=== PATIENT | male | born 1995 | race Caucasian/White ===

== ENCOUNTER 2018-08-22 02:57 | Inpatient (IN) | payer OTHER ==
[2018-08-22] MEDS ORDERED: Sodium Chloride 0.9% 1,000 ML ONE (03:17)
[2018-08-22] MEDS ORDERED: Sodium Chloride 0.9% 1,000 ML IV ONE (03:30)
[2018-08-22 03:39] LABS: BASO # 0.1 K/uL (0.0-0.2); BASO % 0.6 % (0.0-2.0); EOS # 0.1 K/uL (0.0-0.7); EOS % 0.6 % (0.0-4.0); HEMOGLOBIN 14.4 g/dL (12.0-18.0); LYMPH # 1.7 K/uL (1.0-4.3); LYMPH % 8.4 % (20.0-40.0); MEAN CELL VOLUME 85.4 fL (80.0-94.0); MEAN CORPUSCULAR HEMOGLOBIN 28.6 pg (27.0-31.0); MEAN CORPUSCULAR HGB CONC 33.5 g/dL (33.0-37.0); MEAN PLATELET VOLUME 8.6 fL (7.2-11.7); MONO # 0.8 K/uL (0.0-0.8); NEUT # 17.8 K/uL (1.8-7.0); NEUT % 86.4 % (50.0-75.0); PLATELET COUNT 327 K/uL (130-400); RBC 5.02 Mil/uL (4.40-5.90); RED CELL DISTRIBUTION WIDTH 12.8 % (11.5-14.5); WHITE BLOOD COUNT 20.6 K/uL (4.8-10.8)
[2018-08-22 03:51] LABS: BLOOD UREA NITROGEN 9 mg/dL (9-20); CALCIUM 9.6 mg/dl (8.6-10.4); GFR NON-AFRICAN AMERICAN > 60
[2018-08-22 03:59] LABS: BANDS 3 % (0-2); LYMPHOCYTE 6 % (20-40); MONOCYTE 1 % (0-10); NEUTROPHIL 86 % (50-75); PLATELET ESTIMATE NORMAL (NORMAL); REACTIVE LYMPHOCYTES 4 % (0-0); TOTAL CELLS COUNTED 100
[2018-08-22] MEDS ORDERED: Iodixanol 320 MG/ML 100 ML BOTTLE IV ONE (04:10)
--- NOTE | 2018-08-22 04:36 | C.PDOC ---
History Of Present Illness 23 year old male presents to the ED for evaluation of abdominal pain, nausea and vomiting which began at around 1800 today. Patient states that he has had around four episodes of vomiting within the past hour. Patient reports experiencing similar symptoms in the past. He states that sometimes he eats foods which exacerbate his stomach acid problem and cause him to have similar pain and vomiting. Patient denies fever, chills, diarrhea. Time Seen by Provider: 08/22/18 03:09 Chief Complaint (Nursing): Abdominal Pain History Per: Patient History/Exam Limitations: no limitations Onset/Duration Of Symptoms: Hrs Current Symptoms Are (Timing): Still Present Location Of Pain/Discomfort: Diffuse Quality Of Discomfort: "Pain" Associated Symptoms: Nausea, Vomiting. denies: Fever, Chills, Diarrhea Additional History Per: Patient Past Medical History Reviewed: Historical Data, Nursing Documentation, Vital Signs Vital Signs: Last Vital Signs Temp 98.7 F 08/22/18 03:00 Pulse 70 08/22/18 03:00 Resp BP 125/80 08/22/18 03:00 Pulse Ox 96 08/22/18 03:00 - Medical History PMH: No Chronic Diseases Surgical History: No Surg Hx Family History: States: Unknown Family Hx - Social History Hx Alcohol Use: No Hx Substance Use: No Review Of Systems Constitutional: Negative for: Fever, Chills Gastrointestinal: Positive for: Nausea, Vomiting, Abdominal Pain. Negative for: Diarrhea Physical Exam - Physical Exam Appears: Non-toxic, Other (in distress, actively vomiting during examinaton ) Skin: Normal Color, Warm, Dry Head: Atraumatic, Normacephalic Eye(s): bilateral: Normal Inspection Oral Mucosa: Moist Neck: Supple Chest: Symmetrical, No Deformity, No Tenderness Cardiovascular: Rhythm Regular, No Murmur Respiratory: Normal Breath Sounds, No Rhonchi, No Wheezing Gastrointestinal/Abdominal: Soft, Tenderness (mild, diffuse ), No Guarding, No Rebound Extremity: Normal ROM, Capillary Refill (less than 2 seconds ) Neurological/Psych: Oriented x3, Normal Speech, Normal Cognition ED Course And Treatment - Laboratory Results Result Diagrams: 08/22/18 03:30 08/22/18 03:30 O2 Sat by Pulse Oximetry: 96 (on RA ) Pulse Ox Interpretation: Normal - CT Scan/US CT A/P Other Rad Studies (CT/US): Read By Radiologist, Radiology Report Reviewed CT/US Interpretation: CT SCAN OF THE ABDOMEN AND PELVIS WITH CONTRAST. CLINICAL HISTORY: Generalized abdominal pain. TECHNIQUE: Multiple axial and coronal CT images were obtained through the abdomen and pelvis after administration of intravenous contrast material. COMMENTS: Diffusely thickened, enlarged appendix measuring 1.3 cm in its largest transverse dimension. Abnormal diffuse enhancement of the appendix. Mild surrounding inflammatory fat stranding. Uncomplicated colonic diverticulosis. The liver is of uniform attenuation without mass or defect. There is no intra or extrahepatic biliary ductal dilatation. The spleen is normal. The gallbladder is within normal limits. The pancreas is of normal contour and attenuation characteristics. There is no evidence of adrenal mass. Both kidneys demonstrate prompt and equal nephrograms. The kidneys are normal in size, shape and configuration. There is no evidence of renal or ureteral mass. No renal or ureteral calculi are identified. There is no hydroureter or hydronephrosis. There is no bowel wall thickening. No evidence for small or large bowel obstruction. There is no evidence of abdominal ascites or lymphadenopathy. There is no evidence of intrinsic or extrinsic bladder mass. There is no pelvic ascites or lymphadenopathy. Images of the lung bases show no evidence of pleural or parenchymal mass. There are no pleural effusions. The bony structures are free of lytic or blastic lesions. IMPRESSION: Uncomplicated acute appendicitis without perforation or abscess formation. Surgical consultation is recommended. Medical Decision Making Medical Decision Making: Impression: 23 year old male with abdominal pain, nausea, vomiting Progress: Bloodwork and CT A/P ordered and reviewed. Pepcid IVP, Toradol IVP, Zofran IVP and IV Fluids given. 0522- Case discussed with surgical consultant. 4.5g zosyn ivpb ordered. Case discussed with Dr. Brooks, would like admission to Dr. Radha Moore and he will consult for surgery. Dr. Radha Moore contacted for admission. Disposition - Disposition Disposition: HOSPITALIZED Disposition Time: 06:00 Condition: STABLE Forms: [facility] ([place]orran) - Clinical Impression Clinical Impression: Acute appendicitis - Scribe Statement The provider has reviewed the documentation as recorded by the Scribe (Mira Moore) Provider Attestation: All medical record entries made by the Scribe were at my direction and personally dictated by me. I have reviewed the chart and agree that the record accurately reflects my personal performance of the history, physical exam, medical decision making, and the department course for this patient. I have also personally directed, reviewed, and agree with the discharge instructions and disposition.
[2018-08-22] MEDS: Piperacill/Tazo 4.5gm in Dex 4.5 GM/100 ML BAG IVPB SCH ×3 (05:40→17:30)
--- NOTE | 2018-08-22 09:13 | CP.PCM.CON ---
<ThorntonOrlando solis - Last Filed: 08/22/18 09:09> History of Present Illness - History of Present Illness History of Present Illness: General Surgery Consult Re: Acute Appendicitis HPI: 23M presented to the ED with abdominal pain, associated with nausea and NBNB emesis x 6 which began around 6pm yesterday. Started around his umbilicus and spread to RLQ. On arrival in the ED, he had had 4 episodes of emesis within the past hour. Denies fever, chills, diarrhea hematochezia, melena, constipation , SOB, chest pain. PMH: Denies PSH: Denies SH: No tobacco, EtOH, or drug use FH: Noncontributory All: NKDA Meds: Denies Review of Systems - Review of Systems All systems: reviewed and no additional remarkable complaints except (as per HPI) Past Patient History - Past Medical History & Family History Past Medical History?: Yes - Past Social History Smoking Status: Never Smoked - CARDIAC Hx Cardiac Disorders: No - PULMONARY Hx Respiratory Disorders: No - NEUROLOGICAL Hx Neurological Disorder: No - HEENT Hx HEENT Problems: No - RENAL Hx Chronic Kidney Disease: No - ENDOCRINE/METABOLIC Hx Endocrine Disorders: No - HEMATOLOGICAL/ONCOLOGICAL Hx Blood Disorders: No - INTEGUMENTARY Hx Dermatological Problems: No - MUSCULOSKELETAL/RHEUMATOLOGICAL Hx Musculoskeletal Disorders: No Hx Falls: No - GASTROINTESTINAL Hx Gastrointestinal Disorders: Yes Hx Gastroesophageal Reflux: Yes - GENITOURINARY/GYNECOLOGICAL Hx Genitourinary Disorders: No - PSYCHIATRIC Hx Psychophysiologic Disorder: No Hx Substance Use: No - SURGICAL HISTORY Hx Surgeries: No - ANESTHESIA Hx Anesthesia: No Hx Anesthesia Reactions: No Hx Malignant Hyperthermia: No Has any member of the family had a problem w/ anesthesia?: No Meds Allergies/Adverse Reactions: Allergies Allergy/AdvReac Type Severity Reaction Status Date / Time No Known Allergies Allergy Verified 08/22/18 03:02 - Medications Medications: Current Medications Piperacillin Sod/Tazobactam Sod (Zosyn 4.5 Gm Iv Premix) 4.5 gm in 100 mls @ 200 mls/hr IVPB Q6H [facility]; Protocol Last Admin: 08/22/18 05:40 Dose: 200 mls/hr Influenza Virus Vaccine (Fluzone Quad [id number]) 60 mcg IM .ONCE ONE Stop: 08/25/18 10:01 Pneumococcal Polyvalent Vaccine (Pneumovax 23 Vaccine) 0.5 ml IM .ONCE ONE Stop: 08/25/18 10:01 Physical Exam - Constitutional Appears: Non-toxic, No Acute Distress - Head Exam Head Exam: ATRAUMATIC, NORMOCEPHALIC - Eye Exam Eye Exam: EOMI. absent: Scleral icterus - ENT Exam ENT Exam: Mucous Membranes Moist Additional comments: trachea midline - Respiratory Exam Respiratory Exam: NORMAL BREATHING PATTERN. absent: Respiratory Distress - Cardiovascular Exam Cardiovascular Exam: RRR, +S1, +S2 - GI/Abdominal Exam GI & Abdominal Exam: Guarding, Soft, Tenderness (in RLQ). absent: Distended, Firm, Rebound, Rigid - Rectal Exam Rectal Exam: Deferred - Extremities Exam Extremities exam: Positive for: normal capillary refill. Negative for: calf tenderness, pedal edema - Back Exam Back exam: absent: CVA tenderness (L), CVA tenderness (R) - Neurological Exam Neurological exam: Alert, Oriented x3 - Skin Skin Exam: Dry, Warm Results - Vital Signs Recent Vital Signs: Last Vital Signs Temp 98.5 F 08/22/18 08:23 Pulse 60 08/22/18 08:23 Resp 20 08/22/18 08:23 BP 110/65 08/22/18 08:23 Pulse Ox 98 08/22/18 08:23 - Labs Result Diagrams: 08/22/18 03:30 08/22/18 03:30 Labs: Laboratory Results - last 24 hr 08/22/18 08/22/18 03:30 03:30 WBC 20.6 H RBC 5.02 Hgb 14.4 Hct 42.9 MCV 85.4 MCH 28.6 MCHC 33.5 RDW 12.8 Plt Count 327 MPV 8.6 Neut % (Auto) 86.4 H Lymph % (Auto) 8.4 L [place] % (Auto) 4.0 Eos % (Auto) 0.6 Baso % (Auto) 0.6 Neut # (Auto) 17.8 H Lymph # (Auto) 1.7 [place] # (Auto) 0.8 Eos # (Auto) 0.1 Baso # (Auto) 0.1 Neutrophils % (Manual) 86 H Band Neutrophils % 3 H Lymphocytes % (Manual) 6 L Reactive Lymphs % 4 H Monocytes % (Manual) 1 Platelet Estimate Normal Sodium 137 Potassium 4.0 Chloride 102 Carbon Dioxide 24 Anion Gap 15 BUN 9 Creatinine 0.7 L Est GFR ( Amer) > 60 Est GFR (Non-Af Amer) > 60 Random Glucose 126 H Calcium 9.6 - Imaging and Cardiology CT scan - abdomen Status: Image reviewed by me, Report reviewed by me Assessment & Plan - Assessment and Plan (Free Text) Assessment: 23M with uncomplicated acute appendicitis Plan: NPO IVF Abx Pain control Planning for OR today D/W Dr. Cecilia Thornton PGY4 <Alan Brooks - Last Filed: 08/22/18 21:53> Meds - Medications Medications: Current Medications Piperacillin Sod/Tazobactam Sod (Zosyn 4.5 Gm Iv Premix) 4.5 gm in 100 mls @ 200 mls/hr IVPB Q6H [facility]; Protocol Last Admin: 08/22/18 17:30 Dose: 200 mls/hr Lactated Ringer's (Lactated Ringer's) 1,000 mls @ 100 mls/hr IV .Q10H [facility] Last Admin: 08/22/18 13:27 Dose: 200 mls Influenza Virus Vaccine (Fluzone Quad [id number]) 60 mcg IM .ONCE ONE Stop: 08/25/18 10:01 Pneumococcal Polyvalent Vaccine (Pneumovax 23 Vaccine) 0.5 ml IM .ONCE ONE Stop: 08/25/18 10:01 Tramadol HCl (Ultram) 25 mg PO TID PRN PRN Reason: Pain, moderate (4-7) Results - Vital Signs Recent Vital Signs: Last Vital Signs Temp 98.1 F 08/22/18 16:00 Pulse 69 08/22/18 16:00 Resp 20 08/22/18 16:00 BP 120/67 08/22/18 16:00 Pulse Ox 98 08/22/18 16:00 - Labs Result Diagrams: 08/22/18 03:30 08/22/18 03:30 Labs: Laboratory Results - last 24 hr 08/22/18 08/22/18 03:30 03:30 WBC 20.6 H RBC 5.02 Hgb 14.4 Hct 42.9 MCV 85.4 MCH 28.6 MCHC 33.5 RDW 12.8 Plt Count 327 MPV 8.6 Neut % (Auto) 86.4 H Lymph % (Auto) 8.4 L [place] % (Auto) 4.0 Eos % (Auto) 0.6 Baso % (Auto) 0.6 Neut # (Auto) 17.8 H Lymph # (Auto) 1.7 [place] # (Auto) 0.8 Eos # (Auto) 0.1 Baso # (Auto) 0.1 Neutrophils % (Manual) 86 H Band Neutrophils % 3 H Lymphocytes % (Manual) 6 L Reactive Lymphs % 4 H Monocytes % (Manual) 1 Platelet Estimate Normal Sodium 137 Potassium 4.0 Chloride 102 Carbon Dioxide 24 Anion Gap 15 BUN 9 Creatinine 0.7 L Est GFR ( Amer) > 60 Est GFR (Non-Af Amer) > 60 Random Glucose 126 H Calcium 9.6 Attending/Attestation - Attestation I have personally seen and examined this patient.: Yes I have fully participated in the care of the patient.: Yes I have reviewed all pertinent clinical information: Yes Notes (Text): Pt was seen and examined at bedside Agree with above note and assessment Pt with RLQ pain and Nausea Abdomen: Soft, RLQ tenderness, ND Labs and Radiology reviewed Ass: Acute Appendicitis with Leucocytosis Plan: OR for Lap Appendectomy possible Open Consent IV antibiotics NPO, IVF c/w current mx Plan d.w pt in detail Risk and benefit explained in detail
[2018-08-22] MEDS ORDERED: Midazolam 2 MG/2 ML VIAL ONE (11:07)
[2018-08-22] MEDS ORDERED: Propofol 10 mg/ml Inj (20 ML) ONE ×2 (11:07→12:05)
[2018-08-22] MEDS ORDERED: Lidocaine/Epinephrine 1% 1:100000 10 ML IJ ONE (11:51)
[2018-08-22] MEDS ORDERED: Bupivacaine 0.25% 20 ML INJ IJ ONE (11:51)
[2018-08-22] MEDS ORDERED: Succinylcholine Chloride 20 mg/ml Syr (5 ml) IV ONE (11:52)
[2018-08-22] MEDS ORDERED: Rocuronium 10 mg/ml (5 ml) ONE (11:52)
--- NOTE | 2018-08-22 12:40 | CT ---
Date of service: 08/22/2018 PROCEDURE: CT Abdomen and Pelvis with contrast HISTORY: abdominal pain COMPARISON: None. TECHNIQUE: Contrast dose: 100 mL of Visipaque 320 intravenously. Axial and reformatted coronal and sagittal CT images of the abdomen and pelvis were obtained after IV contrast administration. Radiation dose: Total exam DLP = 603.88 mGy-cm. This CT exam was performed using one or more of the following dose reduction techniques: Automated exposure control, adjustment of the mA and/or kV according to patient size, and/or use of iterative reconstruction technique. FINDINGS: LOWER THORAX: Unremarkable. LIVER: Unremarkable. No gross lesion or ductal dilatation. GALLBLADDER AND BILE DUCTS: Unremarkable. PANCREAS: Unremarkable. No gross lesion or ductal dilatation. SPLEEN: Unremarkable. ADRENALS: Unremarkable. No mass. KIDNEYS AND URETERS: Unremarkable. No hydronephrosis. No solid mass. VASCULATURE: Unremarkable. No aortic aneurysm. No aortic atherosclerotic calcification or mural plaque present. BOWEL: Unremarkable. No obstruction. No gross mural thickening. APPENDIX: The appendix is enlarged surrounding with inflammatory changes consistent with acute appendicitis. No evidence of abscess formation or free air to suggest perforation. PERITONEUM: Unremarkable. No free fluid. No free air. LYMPH NODES: Unremarkable. No enlarged lymph nodes. BLADDER: Unremarkable. REPRODUCTIVE: Unremarkable. BONES: No acute fracture. OTHER FINDINGS: None. IMPRESSION: Findings consistent with acute uncomplicated appendicitis. Preliminary report was submitted by [facility] Radiology contains concordant findings.
[2018-08-22] MEDS ORDERED: Neostigmine Methylsulfate 3mg/3ml Syringe IV ONE (12:57)
[2018-08-22] MEDS: Lactated Ringer's 1,000 ML IV SCH ×2 (13:27→23:30)
--- NOTE | 2018-08-22 13:51 | PCM.SURG1 ---
Surgeon's Initial Post Op Note - Surgeon's Notes Surgeon: Dr. Brooks Licensed Surveyor: Dr. Lim Type of Anesthesia: General Endo Pre-Operative Diagnosis: Acute Appendicitis Operative Findings: See operative dictation Post-Operative Diagnosis: Acute Appendicitis Operation Performed: Laparoscopic Appendectomy Specimen/Specimens Removed: Appendix Estimated Blood Loss: EBL {In ML}: 5 Blood Products Given: N/A Drains Used: No Drains Post-Op Condition: Good Date of Surgery/Procedure: 08/22/18 Time of Surgery/Procedure: 13:51
[2018-08-22] MEDS ORDERED: Tramadol 25 mg PO PRN (13:52)
[2018-08-22 14:55] VITALS: RESP 20
--- NOTE | 2018-08-22 16:27 | CP.PCM.HP ---
Past Patient History - Past Medical History & Family History Past Medical History?: Yes - Past Social History Smoking Status: Never Smoked - CARDIAC Hx Cardiac Disorders: No - PULMONARY Hx Respiratory Disorders: No - NEUROLOGICAL Hx Neurological Disorder: No - HEENT Hx HEENT Problems: No - RENAL Hx Chronic Kidney Disease: No - ENDOCRINE/METABOLIC Hx Endocrine Disorders: No - HEMATOLOGICAL/ONCOLOGICAL Hx Blood Disorders: No - INTEGUMENTARY Hx Dermatological Problems: No - MUSCULOSKELETAL/RHEUMATOLOGICAL Hx Musculoskeletal Disorders: No Hx Falls: No - GASTROINTESTINAL Hx Gastrointestinal Disorders: Yes Hx Gastroesophageal Reflux: Yes - GENITOURINARY/GYNECOLOGICAL Hx Genitourinary Disorders: No - PSYCHIATRIC Hx Psychophysiologic Disorder: No Hx Substance Use: No - SURGICAL HISTORY Hx Surgeries: No - ANESTHESIA Hx Anesthesia: No Hx Anesthesia Reactions: No Hx Malignant Hyperthermia: No Has any member of the family had a problem w/ anesthesia?: No Meds Allergies/Adverse Reactions: Allergies Allergy/AdvReac Type Severity Reaction Status Date / Time No Known Allergies Allergy Verified 08/22/18 03:02 Physical Exam - Constitutional Appears: Well - Head Exam Head Exam: ATRAUMATIC, NORMAL INSPECTION, NORMOCEPHALIC - Eye Exam Eye Exam: EOMI, Normal appearance, PERRL Pupil Exam: NORMAL ACCOMODATION, PERRL - ENT Exam ENT Exam: Mucous Membranes Moist, Normal Exam - Neck Exam Neck exam: Positive for: Normal Inspection - Respiratory Exam Respiratory Exam: Decreased Breath Sounds - Cardiovascular Exam Cardiovascular Exam: REGULAR RHYTHM, +S1, +S2 - GI/Abdominal Exam GI & Abdominal Exam: Diminished Bowel Sounds, Soft - Rectal Exam Rectal Exam: Deferred Results - Vital Signs Recent Vital Signs: Last Vital Signs Temp 98.1 F 08/22/18 16:00 Pulse 69 08/22/18 16:00 Resp 20 08/22/18 16:00 BP 120/67 08/22/18 16:00 Pulse Ox 98 08/22/18 16:00 - Labs Result Diagrams: 08/22/18 03:30 08/22/18 03:30 Labs: Laboratory Results - last 24 hr 08/22/18 08/22/18 03:30 03:30 WBC 20.6 H RBC 5.02 Hgb 14.4 Hct 42.9 MCV 85.4 MCH 28.6 MCHC 33.5 RDW 12.8 Plt Count 327 MPV 8.6 Neut % (Auto) 86.4 H Lymph % (Auto) 8.4 L [place] % (Auto) 4.0 Eos % (Auto) 0.6 Baso % (Auto) 0.6 Neut # (Auto) 17.8 H Lymph # (Auto) 1.7 [place] # (Auto) 0.8 Eos # (Auto) 0.1 Baso # (Auto) 0.1 Neutrophils % (Manual) 86 H Band Neutrophils % 3 H Lymphocytes % (Manual) 6 L Reactive Lymphs % 4 H Monocytes % (Manual) 1 Platelet Estimate Normal Sodium 137 Potassium 4.0 Chloride 102 Carbon Dioxide 24 Anion Gap 15 BUN 9 Creatinine 0.7 L Est GFR ( Amer) > 60 Est GFR (Non-Af Amer) > 60 Random Glucose 126 H Calcium 9.6
[2018-08-23] MEDS: Piperacill/Tazo 4.5gm in Dex 4.5 GM/100 ML BAG IVPB SCH ×2 (00:25→05:25)
--- NOTE | 2018-08-23 01:59 | OP ---
PROCEDURE DATE: 08/22/2018 PREOPERATIVE DIAGNOSES: 1. Acute appendicitis. 2. Severe leukocytosis and abdominal pain. POSTOPERATIVE DIAGNOSES: 1. Acute appendicitis. 2. Pelvic collection. 3. Leukocytosis and abdominal pain. PROCEDURES DONE: 1. Laparoscopic appendectomy. 2. Laparoscopic drainage of pelvic collection, small. SURGEON: Alan Brooks MD SPEECH COMMUNICATION INSTRUCTOR: Marcellus Lim DO, PGY-3 resident ANESTHESIA: General endotracheal tube anesthesia. ESTIMATED BLOOD LOSS: Around 10 mL. DRAINS: None. PATHOLOGY: Appendix was sent for the pathology. COMPLICATIONS: None. INTRAOPERATIVE FINDINGS: The patient had acute appendicitis with extremely thickened appendix, body as well as the base. The patient had a very small pelvic collection. The patient had inflammation in the pelvis as well as the right lower quadrant. DESCRIPTION OF PROCEDURE: On intraoperative steps, this is a 23-year-old male who was diagnosed with acute appendicitis with severe leukocytosis of 20,000. The patient was consented for the laparoscopic appendectomy, possible open. Brought to the OR, placed supine on the operating table. After induction of the anesthesia, the abdomen was prepped and draped in the usual sterile fashion. A supraumbilical transverse incision was made. After incising the skin, subcutaneous tissue and the fascia, the Marleen port was placed and pneumo was created. Another 5-mm and 12-mm ports were placed in suprapubic and left lower quadrant. Grasper and dissector were introduced. The appendix appeared to be in the pelvic position. The pelvic position was extremely thickened and edematous. The appendix was dissected from the surrounding structures. The appendix was mobilized. The mesoappendix was resected with a Harmonic scalpel. The base of the appendix was resected with Endo XAVI. The appendix was taken into the EndoCatch bag, taken out through the umbilical port site, and sent to the table for the pathology. There was very small pelvic collection that was both suctioned and irrigated. There was a pelvic inflammation as well periappendicular inflammation. After proper hemostasis, the suction and irrigation of the pelvic and periappendicular area was done. There was no perihepatic collection. After proper hemostasis, all the ports were taken out under vision. Pneumo was deflated. The umbilical port site was closed in two layers, the fascia with 0 Vicryl interrupted suture and the skin with a 4-0 Monocryl. A dry sterile dressing was applied. The patient tolerated the procedure well. Count of instrument and gauze was correct. Alan Brooks MD
[2018-08-23 06:42] LABS: BASO % 0.2 % (0.0-2.0); EOS % 0.1 % (0.0-4.0); HEMOGLOBIN 12.3 g/dL (12.0-18.0); LYMPH % 17.5 % (20.0-40.0); MEAN CELL VOLUME 85.2 fL (80.0-94.0); MEAN CORPUSCULAR HEMOGLOBIN 28.9 pg (27.0-31.0); MEAN CORPUSCULAR HGB CONC 33.9 g/dL (33.0-37.0); MEAN PLATELET VOLUME 8.7 fL (7.2-11.7); MONO # 0.9 K/uL (0.0-0.8); MONO % 8.1 % (0.0-10.0); NEUT # 8.5 K/uL (1.8-7.0); NEUT % 74.1 % (50.0-75.0); RBC 4.27 Mil/uL (4.40-5.90); RED CELL DISTRIBUTION WIDTH 12.6 % (11.5-14.5); WHITE BLOOD COUNT 11.5 K/uL (4.8-10.8)
--- NOTE | 2018-08-23 07:58 | CP.PCM.PN ---
Subjective - Date & Time of Evaluation Date of Evaluation: 08/23/18 Time of Evaluation: 07:56 - Subjective Subjective: General Surgery - Dr. Brooks Pt S&E. BASSAM. Pt complains of mild abdominal pain from the incisions, RLQ abdominal pain is improved after surgery. He is tolerating solid diet and passing flatus. No nausea/vomiting/fevers/chills/sob or chest pains. he has voided and is ambulating. Objective - Vital Signs/Intake and Output Vital Signs (last 24 hours): Temp Pulse Resp BP Pulse Ox 98.1 F 62 20 106/54 L 96 08/23/18 00:00 08/23/18 00:00 08/23/18 00:00 08/23/18 00:00 08/23/18 00:00 Intake and Output: 08/23/18 08/23/18 06:59 18:59 Intake Total 1300 Balance 1300 - Medications Medications: Current Medications Piperacillin Sod/Tazobactam Sod (Zosyn 4.5 Gm Iv Premix) 4.5 gm in 100 mls @ 200 mls/hr IVPB Q6H [facility]; Protocol Last Admin: 08/23/18 05:25 Dose: 200 mls/hr Lactated Ringer's (Lactated Ringer's) 1,000 mls @ 100 mls/hr IV .Q10H [facility] Last Admin: 08/22/18 23:30 Dose: Not Given Influenza Virus Vaccine (Fluzone Quad [id number]) 60 mcg IM .ONCE ONE Stop: 08/25/18 10:01 Pneumococcal Polyvalent Vaccine (Pneumovax 23 Vaccine) 0.5 ml IM .ONCE ONE Stop: 08/25/18 10:01 Tramadol HCl (Ultram) 25 mg PO TID PRN PRN Reason: Pain, moderate (4-7) - Labs Labs: 08/23/18 06:32 08/22/18 03:30 - Constitutional Appears: Well, No Acute Distress - Head Exam Head Exam: ATRAUMATIC, NORMAL INSPECTION, NORMOCEPHALIC - Eye Exam Eye Exam: Normal appearance - ENT Exam ENT Exam: Mucous Membranes Moist - Respiratory Exam Respiratory Exam: NORMAL BREATHING PATTERN. absent: Respiratory Distress - Cardiovascular Exam Cardiovascular Exam: REGULAR RHYTHM - GI/Abdominal Exam GI & Abdominal Exam: Soft. absent: Distended, Firm, Guarding, Rigid Additional comments: incisions c/d/i with surgical dressings in place - Neurological Exam Neurological Exam: Alert, Oriented x3 - Psychiatric Exam Psychiatric exam: Normal Affect, Normal Mood - Skin Skin Exam: Dry, Intact Assessment and Plan - Assessment and Plan (Free Text) Assessment: 23yo M s/p lap appendectomy, POD 1 -Doing well post-operatively -Tolerating diet, pain well controlled with Toradol -WBC down to 11.5 from 20 yesterday -Clear for discharge home from surgical standpoint -Post-op care explained to patient at bedside: He may resume regular diet and light activities. No heavy lifting >10lbs for 4weeks. He may remove dressings in 4 days and shower, leave steristrips in place to fall off on their own. Make an appointment to see Dr. Brooks in 1.5weeks, next . HYACINTH Rendon PGY4
[2018-08-23 08:13] VITALS: BP 101/62; PULSE 61; TEMP 98.6; O2SAT 97
--- NOTE | 2018-08-23 08:25 | CP.PCM.PN ---
Subjective - Date & Time of Evaluation Date of Evaluation: 08/23/18 Time of Evaluation: 08:24 - Subjective Subjective: Medicine Progress Note - Dr Radha Moore Patient seen and examined at bedside. Per nursing no acute events overnight. Patient is doing well, offers no other complaints at this time. Pain is controlled, ambulating and tolerating diet. Admits to passing flatus. Objective - Vital Signs/Intake and Output Vital Signs (last 24 hours): Temp Pulse Resp BP Pulse Ox 98.6 F 61 20 101/62 97 08/23/18 08:12 08/23/18 08:12 08/23/18 08:12 08/23/18 08:12 08/23/18 08:12 Intake and Output: 08/23/18 08/23/18 06:59 18:59 Intake Total 1300 Balance 1300 - Medications Medications: Current Medications Piperacillin Sod/Tazobactam Sod (Zosyn 4.5 Gm Iv Premix) 4.5 gm in 100 mls @ 200 mls/hr IVPB Q6H SUNIL; Protocol Last Admin: 08/23/18 05:25 Dose: 200 mls/hr Lactated Ringer's (Lactated Ringer's) 1,000 mls @ 100 mls/hr IV .Q10H SUNIL Last Admin: 08/22/18 23:30 Dose: Not Given Influenza Virus Vaccine (Fluzone Quad [id number]) 60 mcg IM .ONCE ONE Stop: 08/25/18 10:01 Pneumococcal Polyvalent Vaccine (Pneumovax 23 Vaccine) 0.5 ml IM .ONCE ONE Stop: 08/25/18 10:01 Tramadol HCl (Ultram) 25 mg PO TID PRN PRN Reason: Pain, moderate (4-7) - Labs Labs: 08/23/18 06:32 08/22/18 03:30 - Constitutional Appears: Non-toxic, No Acute Distress - Head Exam Head Exam: ATRAUMATIC, NORMAL INSPECTION - Eye Exam Eye Exam: EOMI, Normal appearance Pupil Exam: PERRL - ENT Exam ENT Exam: Mucous Membranes Moist - Neck Exam Neck Exam: Full ROM - Respiratory Exam Respiratory Exam: Clear to Ausculation Bilateral, NORMAL BREATHING PATTERN. absent: Rales, Rhonchi, Wheezes - Cardiovascular Exam Cardiovascular Exam: REGULAR RHYTHM, +S1 - GI/Abdominal Exam GI & Abdominal Exam: Soft, Tenderness (Mild tenderness at surgical sites), Normal Bowel Sounds. absent: Firm, Guarding, Rigid, Hernia Additional comments: Dressing clean/dry/intact - Extremities Exam Extremities Exam: Full ROM, Normal Inspection. absent: Calf Tenderness - Back Exam Back Exam: NORMAL INSPECTION - Neurological Exam Neurological Exam: Alert, Awake, Oriented x3 - Psychiatric Exam Psychiatric exam: Normal Affect, Normal Mood Assessment and Plan - Assessment and Plan (Free Text) Assessment: Patient is a 23 year old male who is s/p laparoscopic appendectomy POD#1 -Stable, afebrile -Pain control as needed -Encourage ambulation -Patient is cleared for discharge from surgical standpoint -Will discharge home with PO ciprofloxacin and flagyl x 7 days -Patient to follow up with general surgery outpatient next week -Plan discussed with Dr Radha Bland DO PGY-2
[2018-08-23] MEDS: Lactated Ringer's 1,000 ML IV SCH (10:00)
[2018-08-25] MEDS ORDERED: Influenza Vaccine 60 MCG/0.5 ML SYR (3 yr & up) IM ONE (10:00)
[2018-08-25] MEDS ORDERED: Pneumococcal 23-Valent Vaccine IM ONE (10:00)
== END 2018-08-23 11:40 | disposition home or self-care (01) | DRG 343 ==
LOC: C.ER 02:57 → C.3T 05:56
PROVIDERS: ADMIT Internal Medicine Nephrology; ATTEND Internal Medicine Nephrology
PROC: 0DTJ4ZZ Resection of Appendix, Percutaneous Endoscopic Approach (ICD-10-PCS; principal; 2018-08-22 11:00)
DX: K35.80 Unspecified acute appendicitis (principal); K21.9 Gastro-esophageal reflux disease without esophagitis